=== PATIENT | female | born 1965 | race Caucasian/White ===

== ENCOUNTER → 2018-03-26 | Outpatient (CLI) | payer OTHER ==
--- NOTE | 2018-03-29 09:51 | CPEEG ---
[f rep st] ELECTROENCEPHALOGRAM DATE OF STUDY: 03/26/2018 INTERPRETATION: Essentially normal EEG during wakefulness and sleep. There were no potentially epil eptogenic abnormalities present during the awake or sleep recordings. During the recording, the biomedical engineering technologist noted that the patient reported symptoms of feeling like h er legs were twitching and that she had some slurring and/or stuttering in her speech after photic st imulation and hyperventilation. There was no abnormal EEG correlate after these procedures to indica te a seizure etiology for these symptoms and signs. REPORT: This EEG contains 10-12 hertz alpha activity over the posterior head regions. Also, the pat ient had a slow alpha variant with intermittent 5-6 hertz theta beta frequency activity over the post erior head regions. This is a normal variant. There was no abnormal activation at rest, during phot ic stimulation or hyperventilation. There was no abnormal EEG activity after these activation proced ures either. The patient reported feeling twitching in her leg and apparently she had some speech ch anges noted by the technologist. There was no apparent EEG correlate during the period of time when the symptoms were said to have occurred. The patient went on to become drowsy and fell asleep during the recording. There was no abnormal act ivation during drowsiness, light sleep or during times of arousal. Copy requested to: Nino Betancourt MD [facility] /[id number]/[id number]
== END ==
LOC: FCPNEURO 09:30
PROVIDERS: ATTEND Psychiatry & Neurology Neurology
DX: G31.84 Mild cognitive impairment of uncertain or unknown etiology (principal); R29.810 Facial weakness; R47.82 Fluency disorder in conditions classified elsewhere